=== PATIENT | male | born 1955 | race Caucasian/White ===

== ENCOUNTER 2019-10-17 08:00 | Outpatient (CLI) | payer MEDICARE, MEDICAID ==
--- NOTE | 2019-10-17 11:36 | XRAY Report ---
PROCEDURE: Finger(s) LT INDICATIONS: PAIN IN LEFT FINGER TECHNIQUE: AP hand, 2 views of the fourth finger(s) acquired. COMPARISON: None FINDINGS: Bones: No fractures or dislocations. No suspicious bony lesions. Mild osteoarthritic changes throu ghout interphalangeal joints are noted. No gross bony erosion. Soft tissues: No suspicious soft tissue calcifications. Mild to moderate soft tissue swelling around fourth PIP joint is seen. IMPRESSION: Mild osteoarthritic changes throughout PIP and DIP joints with mild to moderate soft tissue swelling around fourth PIP joint. No acute fracture or dislocation. No gross bony erosive changes Reviewed by: Eddie Doll MD on 10/17/2019 10:35 AM NATTY Approved by: Eddie Doll MD on 10/17/2019 10:35 AM AKSUSAN Station ID: [id number]
== END 2019-10-17 23:59 | disposition home or self-care (01) ==
LOC: DI.S 08:00
PROVIDERS: ATTEND Physician Assistant
DX: M19.042 Primary osteoarthritis, left hand (principal)
CPT/HCPCS: 73140